=== PATIENT | female | born 2000 | race Asian ===

== ENCOUNTER 2019-06-26 09:37 | Inpatient (IN) | payer BC ==
[~2019-06-26] VITALS: Ht 167.6 cm; Wt 45.9 kg
[2019-06-26 10:52] VITALS: BP 111/73
[2019-06-26] MEDS ORDERED: HydrOXYzine PAMOATE 50 MG CAPSULE PO PRN (11:30)
[2019-06-26] MEDS ORDERED: MAG HYDROX/AL HYDROX/SIMETH ES 30 ML SUSPENSION UDCUP PO PRN (11:30)
[2019-06-26] MEDS ORDERED: MAGNESIUM HYDROXIDE SUSPENSION 30 ML UDCUP PO PRN (11:30)
[2019-06-26] MEDS ORDERED: LORazepam 2 MG TABLET PO PRN (11:30)
[2019-06-26] MEDS ORDERED: LOPERAMIDE HCL 2 MG CAPSULE PO PRN (11:30)
[2019-06-26] MEDS ORDERED: GuaiFENesin/D-METHORPHAN [SUGAR-FREE] 200-20MG/10 ML SYRUP UDCUP PO PRN (11:30)
[2019-06-26] MEDS ORDERED: PROMETHAZINE HCL 25 MG TABLET PO PRN (11:30)
[2019-06-26] MEDS ORDERED: ACETAMINOPHEN 325 MG TABLET PO PRN (11:30)
[2019-06-26] MEDS ORDERED: QUEtiapine FUMARATE 100 MG TABLET PO PRN (11:30)
[2019-06-26] MEDS ORDERED: TUBERCULIN, PURIFIED PROTEIN DERIVATIVE 5 TU/0.1 ML SYRINGE ID ONE (11:30)
[2019-06-26] MEDS ORDERED: *NON-FORMULARY MED [ENTER DRUG, DOSE, FREQ IN COMMENTS] CLINICAL ONE (13:00)
[2019-06-26] MEDS: NICOTINE 14 MG/24 HOUR PATCH TD SCH (13:00)
[2019-06-26] MEDS ORDERED: INFLUENZA VIRUS VACCINE QVS 2019-20 (3YR+)/PF 60 MCG/0.5 ML SYRINGE IM ONE (15:30)
[2019-06-26 16:13] VITALS: BP 93/62
[2019-06-26] MEDS: THIAMINE HCL 100 MG TABLET PO SCH (16:23)
[2019-06-26] MEDS: ETHINYL ESTRADIOL 0.03 MG PO SCH (16:23)
[2019-06-26] MEDS: LEVONORGESTREL PO SCH (16:23)
[2019-06-26] MEDS: ZOLPIDEM TARTRATE 10 MG TABLET PO PRN (21:16)
[2019-06-27 00:46] VITALS: BP 101/61
[2019-06-27 08:10] LABS: BASOPHILS % (AUTO) 0.6 % (0.0-2.0); EOSINOPHILS % (AUTO) 2.7 % (1.0-6.0); HEMATOCRIT 33.1 % (36-46); LYMPHOCYTES # (AUTO) 2.2 K/uL (1.0-4.8); LYMPHOCYTES % (AUTO) 23.3 % (22.0-44.0); MEAN CORPUSCULAR HEMOGLOBIN 30.8 pg (26.0-34.0); MEAN CORPUSCULAR HGB CONC 33.2 G/dL (31.0-37.0); MEAN CORPUSCULAR VOLUME 93 fL (80-100); MONOCYTES # (AUTO) 0.5 K/uL (0.1-1.0); MONOCYTES % (AUTO) 5.3 % (2.0-9.0); NEUTROPHILS # (AUTO) 6.5 K/uL (1.8-7.7); NEUTROPHILS % (AUTO) 68.1 % (40.0-70.0); PLATELET COUNT (AUTO) 197 K/uL (150-450); RED BLOOD CELL COUNT(AUTO) 3.56 MIL/uL (4.00-5.20); RED CELL DISTRIBUTION WIDTH 12.9 % (11.5-14.5)
[2019-06-27 08:26] VITALS: BP 112/69
[2019-06-27 08:39] LABS: ALANINE AMINOTRANSFERASE 13 U/L (12-78); ALBUMIN 3.4 g/dL (3.4-5.0); ALKALINE PHOSPHATASE 43 U/L (46-116); ANION GAP 6 mmol/L (8-16); ASPARTATE AMINOTRANSFERASE 10 U/L (15-37); BILIRUBIN,TOTAL 0.6 mg/dL (0.1-1.0); CARBON DIOXIDE 28 mmol/L (22-29); CHLORIDE 101 mmol/L (98-107); CHOL/HDL RATIO 2.1 (3.9-5.7); CHOLESTEROL 101 mg/dL (131-200); CREATININE 0.71 mg/dL (0.60-1.30); FREE T4 (FREE THYROXINE) 1.42 ng/dL (0.76-1.46); GLOMERULAR FILTR. RATE CALC > 60 mL/min (>60); GLUCOSE,RANDOM 80 mg/dL (70-110); HCG,QUANTITATIVE < 1 mIU/mL (0-6); HDL CHOLESTEROL 47 mg/dL (40-60); HEMOGLOBIN A1C 5.8 % (4.5-6.2); LDL CHOL (CALC.) 47 mg/dL (0-130); SODIUM SERUM 135 mmol/L (136-145); TOTAL PROTEIN, SERUM 6.5 g/dL (6.4-8.2); TRIGLYCERIDES 37 mg/dL (15-150); UREA NITROGEN, BLOOD 9 mg/dL (7-18)
[2019-06-27] MEDS: THIAMINE HCL 100 MG TABLET PO SCH ×2 (08:59→16:37)
[2019-06-27] MEDS: FOLIC ACID 1 MG TABLET PO SCH (08:59)
[2019-06-27] MEDS: MULTIVITAMINS WITH MINERALS, THERAPEUTIC TABLET PO SCH (08:59)
[2019-06-27] MEDS: FLUoxetine HCL 20 MG CAPSULE PO SCH (08:59)
[2019-06-27] MEDS ORDERED: NICOTINE 14 MG/24 HOUR PATCH TD SCH (09:00)
[2019-06-27 09:07] LABS: THYROID STIMULATING HORMONE 0.79 uIU/mL (0.36-3.74)
[2019-06-27] MEDS: LEVONORGESTREL PO SCH (09:34)
[2019-06-27] MEDS: ETHINYL ESTRADIOL 0.03 MG PO SCH (09:34)
[2019-06-27] MEDS: NICOTINE 14 MG/24 HOUR PATCH TD SCH (09:34)
[2019-06-27 16:18] VITALS: BP 117/75
[2019-06-27] MEDS ORDERED: FLUO-191 PO (17:09)
[2019-06-27] MEDS: ZOLPIDEM TARTRATE 10 MG TABLET PO PRN (20:47)
[2019-06-28 03:37] VITALS: BP 110/77
[2019-06-28 08:45] VITALS: BP 118/90
[2019-06-28] MEDS: FOLIC ACID 1 MG TABLET PO SCH (09:00)
[2019-06-28] MEDS: MULTIVITAMINS WITH MINERALS, THERAPEUTIC TABLET PO SCH (09:00)
[2019-06-28] MEDS: ETHINYL ESTRADIOL 0.03 MG PO SCH (09:00)
[2019-06-28] MEDS: THIAMINE HCL 100 MG TABLET PO SCH (09:00)
[2019-06-28] MEDS: LEVONORGESTREL PO SCH (09:00)
[2019-06-28] MEDS: NICOTINE 14 MG/24 HOUR PATCH TD SCH (09:00)
[2019-06-28] MEDS: FLUoxetine HCL 20 MG CAPSULE PO SCH (09:00)
[2019-06-28] MEDS ORDERED: LEVO1TAB24 PO (09:17)
== END 2019-06-28 10:30 | disposition home or self-care (01) | DRG 885 ==
LOC: B2X 11:06
PROVIDERS: ADMIT Psychiatry & Neurology Psychiatry; ATTEND Psychiatry & Neurology Psychiatry
DX: F33.2 Major depressive disorder, recurrent severe without psychotic features (principal); Z23 Encounter for immunization; Z91.5 Personal history of self-harm; Z91.19 Patient's noncompliance with other medical treatment and regimen; Z81.8 Family history of other mental and behavioral disorders; F12.90 Cannabis use, unspecified, uncomplicated; N91.2 Amenorrhea, unspecified; F17.200 Nicotine dependence, unspecified, uncomplicated
CPT/HCPCS: 83036; 84439; 84443; 86592; 90686